=== PATIENT | female | born 1965 | race Two or more races ===

== ENCOUNTER 2024-09-21 22:44 | Emergency (ER) | payer BC ==
[~2024-09-21] VITALS: Ht 165.1 cm; Wt 68.0 kg
[2024-09-22] MEDS ORDERED: 0.9 % SODIUM CHLORIDE 1,000 ML IV STA (01:08)
[2024-09-22] MEDS ORDERED: ACETAMINOPHEN 500 MG GEL..CAP PO STA (01:09)
[2024-09-22] MEDS ORDERED: KETOROLAC TROMETHAMINE 15 MG VIAL IV STA (01:10)
[2024-09-22 02:08] LABS: HEMATOCRIT 34.9 % (36.0-45.00); HEMOGLOBIN 11.9 g/dL (12.0-15.00); MEAN CELL VOLUME 90.7 fL (80.00-100.00); MEAN CORPUSCULAR HEMOGLOBIN 30.9 pg (27.00-32.0); MEAN CORPUSCULAR HGB CONC 34.1 g/dl (32.0-36.0); PLATELET COUNT 177 K/uL (150-450); RED BLOOD COUNT 3.85 M/uL (4.00-6.00); RED CELL DISTRIBUTION WIDTH 12.5 % (11.5-14.5)
[2024-09-22 02:28] LABS: CALCIUM 8.4 mg/dL (8.5-10.1); CREATININE SERUM 0.63 mg/dL (0.55-1.02); GFR 96.72; POTASSIUM 3.44 mEq/L (3.5-5.1)
== END 2024-09-22 06:08 | disposition home or self-care (01) ==
LOC: ER 22:44
DX: B34.9 Viral infection, unspecified (principal); R53.81 Other malaise; J10.1 Influenza due to other identified influenza virus with other respiratory manifestations; R50.9 Fever, unspecified; E86.0 Dehydration; Z20.822 Contact with and (suspected) exposure to COVID-19